=== PATIENT | female | born 1995 | race Caucasian/White ===

== ENCOUNTER 2017-05-03 05:17 | Emergency (ER) | payer OTHER ==
[2017-05-03 06:08] LABS: PLATELET COUNT 271 x10^3mcL (130-400); RED CELL DISTRIBUTION WIDTH 12.7 % (11.5-14.5)
[2017-05-03 06:12] LABS: BASOPHIL % 4.1 % (0-2)
[2017-05-03 06:15] LABS: CALCIUM 9.1 mg/dL (8.5-10.1); CARBON DIOXIDE 27.1 mmol/L (21-32); CHLORIDE SERUM 96 mmol/L (98-107); CREATININE SERUM 0.7 mg/dL (0.6-1.0); GFR1 > 60 mL/min; GLUCOSE SERUM 110 mg/dL (74-106)
[2017-05-03 06:21] LABS: ALBUMIN 3.6 g/dL (3.4-5.0); ALKALINE PHOSPHATASE 90 U/L (46-116); ALT/SGPT 25 U/L (14-59); AST/SGOT 18 U/L (15-37); BILIRUBIN TOTAL 0.18 mg/dL (0.20-1.00); LIPASE 101 IU/L (73-393); POTASSIUM SERUM 3.7 mmol/L (3.5-5.1); SODIUM SERUM 136 mmol/L (136-145); TOTAL PROTEIN, SERUM 7.9 g/dL (6.4-8.2)
[2017-05-03 06:53] VITALS: BP 152/91
== END 2017-05-03 07:24 | disposition home or self-care (01) ==
LOC: ED 05:17
PROVIDERS: Emergency Medicine
DX: R10.9 Unspecified abdominal pain (principal)
CPT/HCPCS: 36415; J1885

== ENCOUNTER 2017-05-22 03:48 | Emergency (ER) | payer OTHER ==
[2017-05-22 04:27] LABS: PLATELET COUNT 291 x10^3mcL (130-400)
[2017-05-22 04:38] LABS: CALCIUM 8.5 mg/dL (8.5-10.1); CARBON DIOXIDE 25.2 mmol/L (21-32); CHLORIDE SERUM 104 mmol/L (98-107); CREATININE SERUM 0.8 mg/dL (0.6-1.0); GFR1 > 60 mL/min; GLUCOSE SERUM 108 mg/dL (74-106); POTASSIUM SERUM 3.7 mmol/L (3.5-5.1); SODIUM SERUM 141 mmol/L (136-145)
[2017-05-22 04:40] LABS: ALBUMIN 3.4 g/dL (3.4-5.0); ALKALINE PHOSPHATASE 112 U/L (46-116); ALT/SGPT 30 U/L (14-59); AST/SGOT 32 U/L (15-37); BILIRUBIN TOTAL 0.22 mg/dL (0.20-1.00); TOTAL PROTEIN, SERUM 7.2 g/dL (6.4-8.2)
[2017-05-22 05:01] LABS: MONOCYTE 5 % (0-7); SEGMENTED NEUTROPHILS 50 % (37-75); rbc morphology (normal/abnorm) NORMAL (NORMAL)
[2017-05-22 05:02] LABS: PLATELET MORPHOLOGY PLATELETS NORMAL
[2017-05-22 07:51] VITALS: BP 118/64
== END 2017-05-22 07:58 | disposition home or self-care (01) ==
LOC: ED 03:48
PROVIDERS: Emergency Medicine
DX: M54.5 Low back pain (principal)
CPT/HCPCS: J1170; J1885; J2060; J2405; J3010